=== PATIENT | male | born 1955 | race Caucasian/White ===

== ENCOUNTER 2022-05-18 06:48 | Day surgery (SDC) | payer OTHER, SELFPAY ==
[2022-05-18] MEDS: Tropicam./Phenyleph. (1/2.5%) 5 ML BTL OS ×3 (07:23→07:36)
[2022-05-18 07:24] VITALS: BP 148/98; PULSE 66; RESP 16; TEMP 36.2; O2SAT 96
--- NOTE | 2022-05-18 07:49 | ANES.PREOP_ITS ---
General Info Date of Service Date Performed: 05/18/22 Height: 5 ft 10 in Weight: 83.6 kg Body Mass Index (BMI): 26.4 Surgical Procedure: Operation Date: 05/18/22 08:25 Proposed Procedure Side Surgeon p Cataract Extraction with IOL Implant Left Taj Roth MD Meds Allergies and Home Medications Allergies Allergy/AdvReac Type Severity Reaction Status Date / Time zolpidem Allergy Intermediate Other (See Unverified 05/18/22 07:21 Comment) animal dander Allergy Unverified 05/18/22 07:21 Home Medication Medication Instructions Recorded omeprazole 20 mg capsule,delayed 20 mg PO DAILY 05/15/22 release simvastatin 20 mg tablet 20 mg PO DAILY 05/15/22 tramadol 50 mg tablet 50 mg PO Q6H PRN 05/15/22 Current Visit Medications: Current Medications Generic Name Dose Route Start Last Admin Trade Name Freq PRN Reason Stop Dose Admin Acetaminophen 1,000 mg 05/18/22 06:00 Acetaminophen 500 Mg Tab PO Q4H PRN PRN Miscellaneous Medication 0 ml 05/18/22 06:00 05/18/22 07:36 Tropicam./Phenyleph. (1/2.5%) 5 Ml Btl OS 1 drp DIRECTED [facility] Administration Miscellaneous Medication 0 ml 05/18/22 06:00 Prednisolone 1%, Moxifloxacin 0.5%, Nepafenac 0.1% 5ml Btl OS DIRECTED DESTINEY Tetracaine HCl 0 ml 05/18/22 06:00 Tetracaine 0.5% 4 Ml Btl OS DIRECTED [facility] Medical History Medical History Acid reflux Asthma Candidiasis Candidiasis of skin and nails Chronic sinusitis Depressive disorder Dizziness and giddiness Dyslipidemia Ex-smoker Heavy drinker Herniated nucleus pulposus, lumbar HLD (hyperlipidemia) Hypersomnia with sleep apnea Hypertensive disorder Idiopathic osteoarthritis Impotence L2 vertebral fracture Lumbar radiculopathy Moderate persistent asthma KESHAV (obstructive sleep apnea) Osteoarthritis Overweight with body mass index (BMI) 25.0-29.9 PLMD (periodic limb movement disorder) Polyp of nasal cavity Shoulder pain Surgical History Surgical History History of appendectomy History of back surgery History of colonoscopy History of hernia repair History of prostatectomy with surgery to repair blood flow to testicles History of surgery excision of lymph node from lip Tobacco Smoking/Tobacco Use Status: Former Tobacco Use Alcohol Alcohol Intake: current Alcohol intake frequency: 0-2 drinks per day Alcohol type: beer and hard liquor Substance Use Substance use: Never Substance use type: does not use Vital Signs and Lab Results Vital Signs Most Recent Vital Signs in EMR: Most Recent Vital Signs Temp Pulse Resp BP Pulse Ox 36.2 C L 66 16 148/98 H 96 05/18/22 07:24 05/18/22 07:24 05/18/22 07:24 05/18/22 07:24 05/18/22 07:24 Lab Results Blood Type / Crossmatch: No Data to Display Complete Blood Count: No Data to Display Complete Metabolic Panel: No Data to Display Liver Function Panel: No Data to Display Coagulation Panel: No Data to Display Cardiac Panel: No Data to Display Arterial Blood Gas: No Data to Display Venous Blood Gas: No Data to Display Pancreas Panel: No Data to Display Thyroid Panel: No Data to Display Infectious Disease: No Data to Display Blood Cultures: No Data to Display Toxicology Panel: No Data to Display Anesthesia Assessment and Plan Anesthesia History Personal History: No History of Anesthesia Complications Family History: No Family History of Anesthesia Complications Exercise Tolerance Exercise Tolerance: Metabolic Equivalents>4 Pertinent Negatives Pertinent Negatives: No Symptoms of GERD (med controlled) Cardiac & Pulmonary Exam Cardiac Exam: Normal S1/S2 Heart Sounds Pulmonary Exam: Clear Bilateral Breath Sounds Implantable Cardiac Device Does patient have a Pacemaker or an ICD?: No Airway Exam Known Difficult Airway: No Mallampati Class: 1 Mouth Opening: Normal (> 3cm) Thyromental Distance: Greater than 3 cm Neck Range of Motion: Full ROM Neck Circumference: Normal Teeth Condition: Normal Dentition ASA Classification ASA Score: ASA 2 Emergency Case?: No NPO Status NPO Status: NPO Clears >2 hours, Solids >8 hours Anesthesia Plan Resuscitation Status: Full Code Anesthesia Technique: MAC Anesthesia Airway Planned: Natural Airway Monitors Used: Standard Monitors Preoperative Comments:: No mko
[2022-05-18 07:51] VITALS: BMI 26.4
[2022-05-18] MEDS: Balanced Salt Soln.-PLUS 500 ML BAG (08:18)
[2022-05-18] MEDS: Tetracaine 0.5% 4 ML BTL OS (08:18)
[2022-05-18] MEDS: Duovisc Viscoelastic System EACH 1 EACH (08:18)
[2022-05-18] MEDS: Lidocaine 1% Pres-Free 5 ML VIAL (08:19)
[2022-05-18] MEDS: Povidone-Iodine Ophth 30 ML BTL (08:19)
[2022-05-18] MEDS: Phenylephrine/Lidocaine (15/10) MG/ML 1 ML VIAL (08:20)
[2022-05-18 08:37] VITALS: BP 156/94; PULSE 72; RESP 16; TEMP 36.7; O2SAT 97
--- NOTE | 2022-05-18 08:40 | W.PM.DSUDISC ---
Date of service: 05/18/22 Time of Service: 08:40 Discharge Plan Disposition Patient Disposition: Home Discharge Details Attending Provider: Taj Roth Primary Care Provider: Dl Sequeira Home Meds and New Rx's Prescriptions: No Action tramadol 50 mg tablet 50 mg PO Q6H PRN Patient Comments: TAKE ONE TABLET BY MOUTH EVERY 6 HOURS NEEDED FOR PAIN simvastatin 20 mg tablet 20 mg PO DAILY Patient Comments: TAKE ONE TABLET BY MOUTH EVERY DAY omeprazole 20 mg capsule,delayed release(DR/EC) 20 mg PO DAILY Patient Comments: TAKE ONE CAPSULE BY MOUTH EVERY DAY Discharge Instructions Stand Alone Forms: Post-op Topical Cataract, Nabeel Radfordey (DSU) Discharge Orders Discharge Orders: Discharge Order (Routine); Ordered 05/18/22 Ordered By: Taj Roth DS: Diagnosis Discharge Diagnosis (1) Posterior subcapsular age-related cataract of left eye: Status: Resolved (2) Nuclear sclerotic cataract of left eye: Status: Resolved
--- NOTE | 2022-05-18 08:41 | ROE_ITS ---
Date of service: 05/18/22 Time of Service: 08:41 Operative Note Operative Note DATE OF PROCEDURE: 05/18/22 PRE-OP DIAGNOSIS: Nuclear/posterior subcapsular cataract, left eye POST-OP DIAGNOSIS: same PROCEDURE: Cataract extraction using phacoemulsification with intraocular lens implant, left eye SURGEON: Taj Roth ANESTHESIA TYPE: Local By Surgeon and MAC Refer to Anesthesia Record PATHOLOGY: none sent COMPLICATIONS: None Patient was transported to: same day Patient's condition: stable Implants: Dav Clareon [id number] Indications: Progressive decreased vision due to cataract, left eye Procedure Description: CATARACT SURGERY OPERATIVE REPORT PREOPERATIVE DIAGNOSIS: Nuclear/cortical cataract, left eye POSTOPERATIVE DIAGNOSIS: Same OPERATION: Cataract extraction using phacoemulsification with posterior chamber intraocular lens implant, left eye. IOL: IOL Technology Development Intern/Model: Dav Clareon [id number] IOL Power: + 20.0 diopters IOL Serial Number: [id number] Optic Diameter: 6.0mm Haptic/Overall Diameter: 13.0mm PHACO INFO: Dav Oraya Therapeuticsurion Vision System with OZil and Active Fluidics Cumulative Dispersed Energy (CDE): 7.07 seconds SURGEON: Taj Roth MD, SANDRA ANESTHESIA: Monitored Anesthesia Care (MAC), with local sub-tenon's anesthetic infiltration COMPLICATIONS: None SPECIMENS: None INDICATIONS FOR PROCEDURE: The patient is a 66-year-old gentleman with history of diminished visual acuity in his left eye secondary to the development of nuclear/posterior subcapsular cataract. He is significantly symptomatic that he desires cataract surgery and attempt to improve and maximize his vision. PROCEDURE: The correct surgical eye was identified and marked as the left eye and the pupil was dilated in the preoperative area using mydriatics and cycloplegics. The dilated pupil size was 7.0 mm. The patient elected to proceed without oral sedation. The patient was brought to the operating room where cardiopulmonary monitoring was instituted and surgical time-out was performed, confirming the correct operative eye and IOL power. Topical anesthesia was administered and ophthalmic povidone-iodine 5% was instilled into the conjunctival fornices. Lidocaine gel was applied to the c ornea and the greg-ocular area was prepped with Betadine 10% solution and draped in the usual sterile fashion for intraocular surgery, including an aperture drape. A Tegaderm transparent film dressing was cut in half and used to cover the lashes and lid margins. Care was taken to sequester the lashes and lid margins under the Tegaderm dressing. A lid speculum was placed between the lids of the operative eye and the Dav Lux[employer] Revalia operating microscope was maneuvered into position. Yessy scissors were then used to make a conjunctival buttonhole approximately 6mm posterior to the limbus in the inferonasal quadrant. Blunt dissection was carried out to expose bare sclera, and a blunt-tipped sub-tenon?s anesthesia cannula was introduced and passed posteriorly along the globe where non- preserved plain lidocaine was injected into posterior sub-Tenon?s space. A sideport knife was used to make a paracentesis port superior/superiortemporally. Intraocular phenylephrine/lidocaine was injected into the anterior chamber. The anterior chamber was then filled with viscoelastic. A keratome knife was used construct a two-plane near-clear corneal tunnel extending 2.0mm into clear corn ea in the temporal position. . A flap was raised on the anterior capsule and capsulorhexis forceps were used to complete a continuous curvilinear capsulorhexis of 5.5 mm. Balanced salt solution was then used to perform cortical cleaving hydrodissection and nuclear hydrodelineation until the lens could be freely rotated within the capsular bag. The lens nucleus was then disassembled and removed within the capsular bag and iris plane using phacoemulsification. Residual cortical material was removed using the 45-degree angled silicone I/A tip with 0.3mm port. The posterior capsule was carefully polished to remove as much residual lens epithelial cells as safely possible. The capsular bag was then inflated and the anterior chamber deepened with viscoelastic. The lens implant described above was inserted into the capsular bag using the Dav Autonome Injector. A Kuglen hook was used to dial the IOL into position. Residual viscoelastic was then removed first from posterior to the IOL, then from the anterior chamber using the I/A handpiece. The lens implant was noted to center nicely within the capsular bag. The incisions were stromally hydrated, and the anterior chamber was reformed using BSS. Then 0.5cc of moxifloxacin 1.0mg/ml were injected into the capsular bag and anterior chamber. The incisions were checked with a Weck spear and found to be secure. Several drops of ophthalmic povidone-iodine 5% were then applied to the eye followed by two drops of Imprimis combination prednisolone/moxifloxacin/nepafenac solution. The drapes were removed and a clear plastic protective eye shield was placed over the eye. The patient was then returned to Same Day Surgery in stable condition.
--- NOTE | 2022-05-18 08:47 | W.ANESPOSTOP ---
Postoperative Evaluation Date, Time and Location Date Performed: 05/18/22 Time Performed: 08:47 Patient Location: Day Surgery Unit Vital Signs Most Recent Imported Vital Signs: Most Recent Vital Signs Temp Pulse Resp BP Pulse Ox 36.7 C 72 16 156/94 H 97 05/18/22 08:37 05/18/22 08:37 05/18/22 08:37 05/18/22 08:37 05/18/22 08:37 Pain Score Most Recent Pain Score: Most Recent Pain Score Pain Level 0 05/18/22 08:37 Assessment Mental Status: Awake (Alert & Oriented to Patient Baseline) Airway and Respiratory Function: Patent airway with normal (patient baseline) respiratory exam Cardiovascular Function: Hemodynamically Stable Hydration Status: Adequately Hydrated Nausea & Vomiting: No Nausea or Vomiting Pain: Pt. Denies Any Pain Peripheral Nerve Block: Patient did not receive a nerve block
== END 2022-05-18 08:59 | disposition home or self-care (01) ==
LOC: SUR 06:49
PROVIDERS: PCP Family Medicine; Visit Provider Ophthalmology
PROC: (CPT 66984; principal; 2022-05-18 08:15)
DX: H25.042 Posterior subcapsular polar age-related cataract, left eye (principal)
CPT/HCPCS: 66984; V2632

== ENCOUNTER 2022-06-01 08:51 | Day surgery (SDC) | payer OTHER, SELFPAY ==
[2022-06-01 09:08] VITALS: BP 164/94; PULSE 78; RESP 18; TEMP 36.5; O2SAT 96
[2022-06-01] MEDS: Tropicam./Phenyleph. (1/2.5%) 5 ML BTL OD ×3 (09:19→09:29)
--- NOTE | 2022-06-01 10:04 | W.ANESPRE ---
General Info Date of Service Date Performed: 06/01/22 Height: 5 ft 8 in Weight: 85 kg Body Mass Index (BMI): 28.5 Surgical Procedure: Operation Date: 06/01/22 11:40 Proposed Procedure Side Surgeon p Cataract Extraction with IOL Implant Right Taj Roth MD Meds Allergies and Home Medications Allergies Allergy/AdvReac Type Severity Reaction Status Date / Time zolpidem Allergy Intermediate Other (See Unverified 06/01/22 09:16 Comment) animal dander Allergy Unverified 06/01/22 09:16 Home Medication Medication Instructions Recorded omeprazole 20 mg capsule,delayed 20 mg PO DAILY 05/15/22 release simvastatin 20 mg tablet 20 mg PO DAILY 05/15/22 tramadol 50 mg tablet 50 mg PO Q6H PRN 05/15/22 Current Visit Medications: Current Medications Generic Name Dose Route Start Last Admin Trade Name Freq PRN Reason Stop Dose Admin Acetaminophen 1,000 mg 06/01/22 06:00 Acetaminophen 500 Mg Tab PO Q4H PRN PRN Miscellaneous Medication 0 ml 06/01/22 06:00 06/01/22 09:29 Tropicam./Phenyleph. (1/2.5%) 5 Ml Btl OD 1 drp DIRECTED DESTINEY Administration Miscellaneous Medication 0 ml 06/01/22 06:00 Prednisolone 1%, Moxifloxacin 0.5%, Nepafenac 0.1% 5ml Btl OD DIRECTED DESTINEY Tetracaine HCl 0 ml 06/01/22 06:00 Tetracaine 0.5% 4 Ml Btl OD DIRECTED DESTINEY PFSH Active Problems Active Problems: Problem Status Onset Code Nuclear sclerotic cataract of left eye H25.12 Posterior subcapsular age-related cataract of left eye H25.042 Nuclear age-related cataract, right eye H25.11 Posterior subcapsular age-related cataract, right eye H25.041 Medical History Medical History Acid reflux Asthma Candidiasis Candidiasis of skin and nails Chronic sinusitis Depressive disorder Dizziness and giddiness Dyslipidemia Ex-smoker Heavy drinker Herniated nucleus pulposus, lumbar HLD (hyperlipidemia) Hypersomnia with sleep apnea Hypertensive disorder Idiopathic osteoarthritis Impotence L2 vertebral fracture Lumbar radiculopathy Moderate persistent asthma KESHAV (obstructive sleep apnea) Osteoarthritis Overweight with body mass index (BMI) 25.0-29.9 PLMD (periodic limb movement disorder) Polyp of nasal cavity Shoulder pain Surgical History Surgical History (Updated 06/01/22 @ 09:06 by Gianna Villalobos) History of appendectomy History of back surgery History of cataract surgery History of colonoscopy History of hernia repair History of prostatectomy with surgery to repair blood flow to testicles History of surgery excision of lymph node from lip Tobacco Smoking/Tobacco Use Status: Former Tobacco Use Alcohol Alcohol Intake: current Alcohol intake frequency: 0-2 drinks per day Alcohol type: beer and hard liquor Substance Use Substance use: Never Substance use type: does not use Vital Signs and Lab Results Vital Signs Most Recent Vital Signs in EMR: Most Recent Vital Signs Temp Pulse Resp BP Pulse Ox 36.5 C 78 18 164/94 H 96 06/01/22 09:08 06/01/22 09:08 06/01/22 09:08 06/01/22 09:08 06/01/22 09:08 Lab Results Blood Type / Crossmatch: No Data to Display Complete Blood Count: No Data to Display Complete Metabolic Panel: No Data to Display Liver Function Panel: No Data to Display Coagulation Panel: No Data to Display Cardiac Panel: No Data to Display Arterial Blood Gas: No Data to Display Venous Blood Gas: No Data to Display Pancreas Panel: No Data to Display Thyroid Panel: No Data to Display Infectious Disease: No Data to Display Blood Cultures: No Data to Display Toxicology Panel: No Data to Display Anesthesia Assessment and Plan Anesthesia History Personal History: No History of Anesthesia Complications Family History: No Family History of Anesthesia Complications Exercise Tolerance Exercise Tolerance: Metabolic Equivalents>4 Pertinent Negatives Pertinent Negatives: No Major Cardiovascular Symptoms or Complaints and No Major Pulmonary Symptoms or Complaints Cardiac & Pulmonary Exam Cardiac Exam: Normal S1/S2 Heart Sounds Pulmonary Exam: Clear Bilateral Breath Sounds Implantable Cardiac Device Does patient have a Pacemaker or an ICD?: No Airway Exam Known Difficult Airway: No Mallampati Class: 1 Mouth Opening: Normal (> 3cm) Thyromental Distance: Greater than 3 cm Neck Range of Motion: Full ROM Neck Circumference: Normal Teeth Condition: Normal Dentition ASA Classification ASA Score: ASA 2 Emergency Case?: No NPO Status NPO Status: NPO Clears >2 hours, Solids >8 hours Anesthesia Plan Resuscitation Status: Full Code Anesthesia Technique: MAC Anesthesia Airway Planned: Natural Airway Monitors Used: Standard Monitors
[2022-06-01 10:39] VITALS: BMI 28.5
[2022-06-01] MEDS: Tetracaine 0.5% 4 ML BTL OD (10:58)
[2022-06-01] MEDS: Lidocaine 1% Pres-Free 5 ML VIAL (10:58)
[2022-06-01] MEDS: Phenylephrine/Lidocaine (15/10) MG/ML 1 ML VIAL (10:59)
[2022-06-01] MEDS: Balanced Salt Soln.-PLUS 500 ML BAG (11:00)
[2022-06-01] MEDS: Povidone-Iodine Ophth 30 ML BTL (11:00)
[2022-06-01] MEDS: Duovisc Viscoelastic System EACH 1 EACH (11:00)
[2022-06-01 11:13] VITALS: BP 158/89; PULSE 76; RESP 17; TEMP 36.1; O2SAT 95
--- NOTE | 2022-06-01 11:13 | W.PM.DSUDISC ---
Date of service: 06/01/22 Time of Service: 11:13 Discharge Plan Disposition Patient Disposition: Home Discharge Details Attending Provider: Taj Roth Primary Care Provider: Dl Sequeira Home Meds and New Rx's Prescriptions: No Action tramadol 50 mg tablet 50 mg PO Q6H PRN Patient Comments: TAKE ONE TABLET BY MOUTH EVERY 6 HOURS NEEDED FOR PAIN simvastatin 20 mg tablet 20 mg PO DAILY Patient Comments: TAKE ONE TABLET BY MOUTH EVERY DAY omeprazole 20 mg capsule,delayed release(DR/EC) 20 mg PO DAILY Patient Comments: TAKE ONE CAPSULE BY MOUTH EVERY DAY Discharge Instructions Stand Alone Forms: Post-op Topical Cataract, Nabeel Cunningham ([facility]U) Discharge Orders Discharge Orders: Discharge Order (Routine); Ordered 06/01/22 Ordered By: Taj Roth DS: Diagnosis Discharge Diagnosis (1) Nuclear age-related cataract, right eye: Status: Resolved (2) Posterior subcapsular age-related cataract, right eye: Status: Resolved
--- NOTE | 2022-06-01 11:15 | ROE_ITS ---
Date of service: 06/01/22 Time of Service: 11:15 Operative Note Operative Note DATE OF PROCEDURE: 06/01/22 PRE-OP DIAGNOSIS: Nuclear/posterior subcapsular cataract, right eye POST-OP DIAGNOSIS: same PROCEDURE: Cataract extraction using phacoemulsification with intraocular lens implant, right eye SURGEON: Taj Roth ANESTHESIA TYPE: Local By Surgeon and MAC Refer to Anesthesia Record ESTIMATED BLOOD LOSS: 0 PATHOLOGY: none sent COMPLICATIONS: None Patient was transported to: same day Patient's condition: stable Implants: Dav Clareon [id number] Indications: Progressive decreased vision due to cataract, right eye Procedure Description: CATARACT SURGERY OPERATIVE REPORT PREOPERATIVE DIAGNOSIS: Nuclear/posterior subcapsular cataract, right eye POSTOPERATIVE DIAGNOSIS: Same OPERATION: Cataract extraction using phacoemulsification with posterior chamber intraocular lens implant, right eye. IOL: IOL Beekeeper Farmer/Model: Dav Clareon [id number] IOL Power: + 24.0 diopters IOL Serial Number: Two [id number] Optic Diameter: 6.0mm Haptic/Overall Diameter: 13.0mm PHACO INFO: Dav Centurion Vision System with OZil and Active Fluidics Cumulative Dispersed Energy (CDE): 7.12 seconds SURGEON: Taj Roth MD, SANDRA ANESTHESIA: Monitored Anesthesia Care (MAC), with local sub-tenon's anesthetic infiltration COMPLICATIONS: None SPECIMENS: None INDICATIONS FOR PROCEDURE: The patient is a 66-year-old gentleman with history of diminished visual acuity in both eyes secondary to the development of bilateral nuclear/posterior subcapsular cataract. He is significantly symptomatic that he desired cataract surgery and attempt to improve and maximize his vision. He has already undergone cataract surgery in the left eye and is doing well postoperatively. He now presents for cataract surgery in the right eye. PROCEDURE: The correct surgical eye was identified and marked as the right eye and the pupil was dilated in the preoperative area using mydriatics and cycloplegics. The dilated pupil size was 8.0 mm. The patient elected to proceed without oral sedation. The patient was brought to the operating room where cardiopulmonary monitoring was instituted and surgical time-out was performed, confirming the correct operative eye and IOL power. Topical anesthesia was administered and ophthalmic povidone-iodine 5% was instilled into the conjunctival fornices. Lidocaine gel was applied to the cornea and the greg-ocular area was prepped with Betadine 10% solution and draped in the usual sterile fashion for intraocular surgery, including an aperture drape. A Tegaderm transparent film dressing was cut in half and used to cover the lashes and lid margins. Care was taken to sequester the lashes and lid margins under the Tegaderm dressing. A lid speculum was placed between the lids of the operative eye and the Jadyn-Doni operating microscope was maneuvered into position. Yessy scissors were then used to make a conjunctival buttonhole approximately 6mm posterior to the limbus in the inferonasal quadrant. Blunt dissection was carried out to expose bare sclera, and a blunt-tipped sub-tenon?s anesthesia cannula was introduced and passed posteriorly along the globe where non- preserved plain lidocaine was injected into posterior sub-Tenon?s space. A sideport knife was used to make a paracentesis port inferiortemporally. Intraocular phenylephrine/lidocaine was injected into the anterior chamber. The anterior chamber was then filled with viscoelastic. A keratome knife was used to construct a two--plane near-clear corneal tunnel extending 2.0mm into clear cornea in the superiortemporal position.. A flap was raised on the anterior capsule and capsulorhexis forceps were used to complete a continuous curvilinear capsulorhexis of 5.5 mm. Balanced salt solution was then used to perform cortical cleaving hydrodissection and nuclear hydrodelineation until the lens could be freely rotated within the capsular bag. The lens nucleus was then disassembled and removed within the capsular bag and iris plane using phacoemulsification. Residual cortical material was removed using the I/A handpiece. The posterior capsule was carefully polished to remove as much residual lens epithelial cells as safely possible. The capsular bag was then inflated and the anterior chamber deepened with viscoelastic. The lens implant described above was inserted into the capsular bag using the Dav Autonome Injector. A Kuglen hook was used to dial the IOL into position. Residual viscoelastic was then removed first from posterior to the IOL, then from the anterior chamber using the I/A handpiece. The lens implant was noted to center nicely within the capsular bag. The incisions were stromally hydrated, and the anterior chamber was reformed using BSS. Then 0.5cc of moxifloxacin 1.0mg/ml were injected into the capsular bag and anterior chamber. The incisions were checked with a Weck spear and found to be secure. Several drops of ophthalmic povidone-iodine 5% were then applied to the eye followed by two drops of Imprimis combination prednisolone/moxifloxacin/nepafenac solution. The drapes were removed and a clear plastic protective eye shield was placed over the eye. The patient was then returned to Same Day Surgery in stable condition.
--- NOTE | 2022-06-01 15:05 | W.ANESPOSTOP ---
Postoperative Evaluation Date, Time and Location Date Performed: 06/01/22 Time Performed: 15:06 Patient Location: Day Surgery Unit Vital Signs Most Recent Imported Vital Signs: Most Recent Vital Signs Temp Pulse Resp BP Pulse Ox 36.1 C L 76 17 158/89 H 95 06/01/22 11:13 06/01/22 11:13 06/01/22 11:13 06/01/22 11:13 06/01/22 11:13 Assessment Mental Status: Awake (Alert & Oriented to Patient Baseline) Airway and Respiratory Function: Patent airway with normal (patient baseline) respiratory exam Cardiovascular Function: Hemodynamically Stable Hydration Status: Adequately Hydrated Nausea & Vomiting: No Nausea or Vomiting Pain: Pt. Denies Any Pain Peripheral Nerve Block: Other (Local by Dr. Roth)
== END 2022-06-01 11:30 | disposition home or self-care (01) ==
LOC: SUR 08:51
PROVIDERS: PCP Family Medicine; Visit Provider Ophthalmology
PROC: (CPT 66984; principal; 2022-06-01 11:30)
DX: H25.11 Age-related nuclear cataract, right eye (principal); H25.041 Posterior subcapsular polar age-related cataract, right eye; Z98.42 Cataract extraction status, left eye; I10 Essential (primary) hypertension; G47.33 Obstructive sleep apnea (adult) (pediatric)
CPT/HCPCS: 66984; V2632